=== PATIENT | female | born 1985 | race African-American/Black ===

== ENCOUNTER 2016-10-17 00:14 | Inpatient (IN) | payer MEDICAID ==
[~2016-10-17 00:14] MED LIST: ARIP10TA14 PO
[2016-10-17 01:20] VITALS: BP 119/64
[2016-10-17] MEDS ORDERED: ZOLPIDEM TARTRATE 10 MG TABLET PO PRN (01:30)
[2016-10-17 03:55] VITALS: BP 128/88
[2016-10-17 06:27] LABS: GLUCOSE,POINT OF CARE 233 MG/DL (70-110)
[2016-10-17] MEDS: QUEtiapine FUMARATE 100 MG TABLET PO PRN ×2 (08:06→16:54)
[2016-10-17] MEDS: LORazepam 1 MG TABLET PO PRN ×2 (08:07→16:54)
[2016-10-17 08:22] VITALS: BP 109/82
[2016-10-17] MEDS ORDERED: LORazepam 2 MG/ML VIAL IM ONE (08:45)
[2016-10-17] MEDS ORDERED: HALOPERIDOL LACTATE 5 MG/ML VIAL IM ONE (08:45)
[2016-10-17] MEDS ORDERED: DiphenhydrAMINE HCL 50 MG/ML VIAL IM ONE (08:45)
[2016-10-17 10:38] LABS: GLUCOSE,POINT OF CARE 164 MG/DL (70-110)
[2016-10-17 16:07] VITALS: BP 124/72
[2016-10-17] MEDS: OLANZapine 5 MG RAPDIS TABLET PO SCH (16:55)
[2016-10-17] MEDS: LevETIRAcetam 250 MG TABLET PO SCH (17:00)
[2016-10-17 17:47] LABS: GLUCOSE,POINT OF CARE 239 MG/DL (70-110)
[2016-10-17] MEDS ORDERED: ACETAMINOPHEN 325 MG TABLET PO PRN (19:45)
[2016-10-17] MEDS ORDERED: IBUPROFEN 400 MG TABLET PO PRN (19:45)
[2016-10-18 07:12] VITALS: BP 120/72
[2016-10-18 07:22] LABS: GLUCOSE,POINT OF CARE 164 MG/DL (70-110)
[2016-10-18 08:21] LABS: BASOPHILS # (AUTO) 0.08 K/uL (0.00-0.20); BASOPHILS % (AUTO) 0.9 % (0.0-2.0); EOSINOPHILS # (AUTO) 1.17 K/uL (0.00-0.70); HEMATOCRIT 46.2 % (36-46); HEMOGLOBIN 14.6 g/dL (12.0-16.0); LYMPHOCYTES # (AUTO) 4.3 K/uL (1.0-4.8); LYMPHOCYTES % (AUTO) 45.2 % (22.0-44.0); MEAN CORPUSCULAR HEMOGLOBIN 25.3 pg (26.0-34.0); MEAN CORPUSCULAR HGB CONC 31.6 G/dL (31.0-37.0); MEAN CORPUSCULAR VOLUME 80 fL (80-100); MONOCYTES # (AUTO) 0.5 K/uL (0.1-1.0); MONOCYTES % (AUTO) 5.7 % (2.0-9.0); NEUTROPHILS # (AUTO) 3.4 K/uL (1.8-7.7); NEUTROPHILS % (AUTO) 35.9 % (40.0-70.0); PLATELET COUNT (AUTO) 316 K/uL (150-450); RED BLOOD CELL COUNT(AUTO) 5.77 MIL/uL (4.00-5.20); RED CELL DISTRIBUTION WIDTH 15.6 % (11.5-14.5); WHITE BLOOD COUNT (AUTO) 9.4 K/uL (4.5-11.0)
[2016-10-18 08:38] VITALS: BP 138/73
[2016-10-18 08:59] LABS: ALANINE AMINOTRANSFERASE 20 U/L (12-78); ALBUMIN 3.7 g/dL (3.4-5.0); ANION GAP 5 mmol/L (8-16); ASPARTATE AMINOTRANSFERASE 8 U/L (15-37); BILIRUBIN,TOTAL 0.2 mg/dL (0.1-1.0); CALCIUM, TOTAL 9.5 mg/dL (8.8-10.5); CARBON DIOXIDE 32 mmol/L (22-29); CHLORIDE 102 mmol/L (98-107); CHOL/HDL RATIO 3.5 (3.9-5.7); CREATININE 0.76 mg/dL (0.60-1.30); GLOMERULAR FILTR. RATE CALC > 60 mL/min (>60); POTASSIUM 5.4 mmol/L (3.5-5.1); SODIUM SERUM 139 mmol/L (136-145); TOTAL PROTEIN, SERUM 7.1 g/dL (6.4-8.2); UREA NITROGEN, BLOOD 25 mg/dL (7-18)
[2016-10-18] MEDS: OLANZapine 5 MG RAPDIS TABLET PO SCH ×2 (08:59→16:21)
[2016-10-18] MEDS: LevETIRAcetam 250 MG TABLET PO SCH ×2 (08:59→16:21)
[2016-10-18 09:01] LABS: HEMOGLOBIN A1C 8.9 % (4.5-6.2)
[2016-10-18] MEDS: LORazepam 1 MG TABLET PO PRN ×2 (09:02→16:22)
[2016-10-18] MEDS ORDERED: SODIUM POLYSTYRENE SULFONATE 15 GM/60 ML SUSPENSION BOTTLE PO ONE (10:15)
[2016-10-18] MEDS ORDERED: GLUCAGON,HUMAN RECOMBINANT 1 MG VIAL IM PRN (10:30)
[2016-10-18] MEDS: INSULIN ASPART 100 UNITS/ML SQ PRN ×2 (11:44→20:18)
[2016-10-18 12:27] LABS: GLUCOSE,POINT OF CARE 250 MG/DL (70-110)
[2016-10-18 16:01] VITALS: BP 125/77
[2016-10-18 20:12] LABS: GLUCOSE,POINT OF CARE 300 MG/DL (70-110)
[2016-10-18] MEDS: INSULIN DETEMIR 100 UNITS/ML SQ SCH (20:17)
[2016-10-18] MEDS ORDERED: INSULIN DETEMIR 100 UNITS/ML SQ SCH (21:00)
[2016-10-19 08:00] VITALS: BP 137/60
[2016-10-19] MEDS: OLANZapine 5 MG RAPDIS TABLET PO SCH ×2 (08:09→16:24)
[2016-10-19] MEDS: LevETIRAcetam 250 MG TABLET PO SCH ×2 (08:11→16:24)
[2016-10-19] MEDS: QUEtiapine FUMARATE 100 MG TABLET PO PRN ×2 (08:11→16:29)
[2016-10-19] MEDS: LORazepam 1 MG TABLET PO PRN ×2 (08:11→16:24)
[2016-10-19 12:08] LABS: GLUCOSE,POINT OF CARE 234 MG/DL (70-110)
[2016-10-19] MEDS ORDERED: LORazepam 2 MG/ML VIAL IM ONE (13:30)
[2016-10-19] MEDS ORDERED: DiphenhydrAMINE HCL 50 MG/ML VIAL IM ONE (13:30)
[2016-10-19] MEDS ORDERED: HALOPERIDOL LACTATE 5 MG/ML VIAL IM ONE (13:30)
[2016-10-19 16:00] VITALS: BP 122/74
[2016-10-19] MEDS: INSULIN DETEMIR 100 UNITS/ML SQ SCH (21:00)
[2016-10-20 06:01] VITALS: BP 137/60
[2016-10-20 06:37] LABS: GLUCOSE,POINT OF CARE 145 MG/DL (70-110)
[2016-10-20] MEDS: QUEtiapine FUMARATE 100 MG TABLET PO PRN ×2 (09:19→16:04)
[2016-10-20] MEDS: LORazepam 1 MG TABLET PO PRN ×2 (09:19→16:04)
[2016-10-20] MEDS: OLANZapine 5 MG RAPDIS TABLET PO SCH ×2 (09:19→16:04)
[2016-10-20] MEDS: LevETIRAcetam 250 MG TABLET PO SCH ×2 (09:19→16:03)
[2016-10-20 16:00] VITALS: BP 123/73
[2016-10-20 16:52] LABS: GLUCOSE,POINT OF CARE 285 MG/DL (70-110)
[2016-10-20] MEDS: INSULIN DETEMIR 100 UNITS/ML SQ SCH (21:00)
[2016-10-21 06:32] LABS: GLUCOSE,POINT OF CARE 231 MG/DL (70-110)
[2016-10-21 06:51] VITALS: BP 135/86
[2016-10-21 08:10] LABS: ALANINE AMINOTRANSFERASE 17 U/L (12-78); ALBUMIN 3.2 g/dL (3.4-5.0); ANION GAP 9 mmol/L (8-16); ASPARTATE AMINOTRANSFERASE 6 U/L (15-37); BILIRUBIN,TOTAL 0.2 mg/dL (0.1-1.0); CARBON DIOXIDE 25 mmol/L (22-29); CHLORIDE 103 mmol/L (98-107); CREATININE 0.61 mg/dL (0.60-1.30); GLOMERULAR FILTR. RATE CALC > 60 mL/min (>60); POTASSIUM 4.4 mmol/L (3.5-5.1); SODIUM SERUM 137 mmol/L (136-145); TOTAL PROTEIN, SERUM 6.8 g/dL (6.4-8.2); UREA NITROGEN, BLOOD 20 mg/dL (7-18)
[2016-10-21 08:12] VITALS: BP 141/82
[2016-10-21] MEDS: LevETIRAcetam 250 MG TABLET PO SCH ×2 (09:05→17:17)
[2016-10-21] MEDS: QUEtiapine FUMARATE 100 MG TABLET PO PRN (09:05)
[2016-10-21] MEDS: OLANZapine 5 MG RAPDIS TABLET PO SCH (09:05)
[2016-10-21] MEDS: LORazepam 1 MG TABLET PO PRN (09:05)
[2016-10-21 12:27] LABS: GLUCOSE,POINT OF CARE 208 MG/DL (70-110)
[2016-10-21] MEDS ORDERED: LORazepam 2 MG/ML VIAL ONE (13:26)
[2016-10-21] MEDS ORDERED: DiphenhydrAMINE HCL 50 MG/ML VIAL ONE (13:27)
[2016-10-21] MEDS ORDERED: HALOPERIDOL LACTATE 5 MG/ML VIAL ONE (13:27)
[2016-10-21] MEDS: FLUoxetine HCL 20 MG CAPSULE PO SCH (13:30)
[2016-10-21] MEDS ORDERED: DiphenhydrAMINE HCL 50 MG/ML VIAL IM ONE (14:00)
[2016-10-21] MEDS ORDERED: LORazepam 2 MG/ML VIAL IM ONE (14:00)
[2016-10-21] MEDS ORDERED: HALOPERIDOL LACTATE 5 MG/ML VIAL IM ONE (14:00)
[2016-10-21 16:00] VITALS: BP 158/62
[2016-10-21 16:57] LABS: GLUCOSE COMMENT 1 Received Meds; GLUCOSE,POINT OF CARE 313 MG/DL (70-110)
[2016-10-21] MEDS: OLANZapine 10 MG RAPDIS TABLET PO SCH (17:17)
[2016-10-21] MEDS: INSULIN ASPART 100 UNITS/ML SQ PRN ×2 (17:24→21:04)
[2016-10-21 21:02] LABS: GLUCOSE COMMENT 1 Received Meds; GLUCOSE,POINT OF CARE 285 MG/DL (70-110)
[2016-10-21] MEDS: INSULIN DETEMIR 100 UNITS/ML SQ SCH (21:04)
[2016-10-22 06:47] LABS: GLUCOSE,POINT OF CARE 198 MG/DL (70-110)
[2016-10-22] MEDS: OLANZapine 10 MG RAPDIS TABLET PO SCH ×2 (08:05→16:10)
[2016-10-22] MEDS: FLUoxetine HCL 20 MG CAPSULE PO SCH (08:05)
[2016-10-22] MEDS: LevETIRAcetam 250 MG TABLET PO SCH ×2 (08:05→16:10)
[2016-10-22] MEDS: LORazepam 1 MG TABLET PO PRN (08:13)
[2016-10-22 08:39] VITALS: BP 139/94
[2016-10-22] MEDS ORDERED: LEVE250T55 PO (09:19)
[2016-10-22] MEDS ORDERED: OLAN10TA6 PO (09:19)
[2016-10-22] MEDS ORDERED: INSU100V12 SQ (09:19)
[2016-10-22] MEDS ORDERED: FLUO-191 PO (09:19)
[2016-10-22] MEDS: INSULIN ASPART 100 UNITS/ML SQ PRN ×3 (11:47→20:30)
[2016-10-22 12:12] LABS: GLUCOSE,POINT OF CARE 253 MG/DL (70-110)
[2016-10-22 16:20] VITALS: BP 132/78
[2016-10-22 17:37] LABS: GLUCOSE,POINT OF CARE 362 MG/DL (70-110)
[2016-10-22] MEDS: INSULIN DETEMIR 100 UNITS/ML SQ SCH (20:31)
[2016-10-22 20:33] LABS: GLUCOSE,POINT OF CARE 208 MG/DL (70-110)
[2016-10-23 06:49] VITALS: BP 131/85
[2016-10-23] MEDS: INSULIN ASPART 100 UNITS/ML SQ PRN ×2 (06:52→11:32)
[2016-10-23 07:46] LABS: GLUCOSE,POINT OF CARE 176 MG/DL (70-110)
[2016-10-23] MEDS: LevETIRAcetam 250 MG TABLET PO SCH (08:01)
[2016-10-23] MEDS: QUEtiapine FUMARATE 100 MG TABLET PO PRN (08:01)
[2016-10-23] MEDS: LORazepam 1 MG TABLET PO PRN (08:01)
[2016-10-23] MEDS: OLANZapine 10 MG RAPDIS TABLET PO SCH (08:01)
[2016-10-23 08:16] VITALS: BP 129/90
[2016-10-23] MEDS ORDERED: FLUoxetine HCL 20 MG CAPSULE PO SCH (09:00)
[2016-10-23 11:42] LABS: GLUCOSE,POINT OF CARE 257 MG/DL (70-110)
== END 2016-10-23 13:52 | disposition home or self-care (01) | DRG 750 ==
LOC: B3A 01:36 → EDSTATUS 01:40
PROVIDERS: ADMIT Psychiatry & Neurology Psychiatry; ATTEND Psychiatry & Neurology Psychiatry
DX: F25.0 Schizoaffective disorder, bipolar type (principal); F15.20 Other stimulant dependence, uncomplicated; E11.65 Type 2 diabetes mellitus with hyperglycemia; E87.5 Hyperkalemia; Z91.14 Patient's other noncompliance with medication regimen; I10 Essential (primary) hypertension; Z59.0 Homelessness; E78.5 Hyperlipidemia, unspecified; F10.10 Alcohol abuse, uncomplicated
CPT/HCPCS: 82962; 83036; 84436; J1200; J1630; J2060

== ENCOUNTER 2017-07-09 16:08 | Inpatient (IN) | payer MEDICAID, OTHER ==
[~2017-07-09] VITALS: Ht 160 cm; Wt 76.2 kg
[~2017-07-09 16:08] MED LIST changes: -ARIP10TA14 PO; +FLUO-191 PO; +INSU100V12 SQ; +LEVE250T55 PO; +OLAN10TA6 PO
[2017-07-09 17:16] LABS: AMPHET/METH SCREEN,URINE POSITIVE (NEGATIVE); BARBITURATE SCREEN, URINE NEGATIVE (NEGATIVE); BENZODIAZEPINES SCREEN,URINE NEGATIVE (NEGATIVE); CANNABINOID SCREEN,URINE POSITIVE (NEGATIVE); COCAINE SCREEN,URINE NEGATIVE (NEGATIVE); METHADONE SCREEN, URINE NEGATIVE (NEGATIVE); OPIATE SCREEN,URINE NEGATIVE (NEGATIVE)
[2017-07-09 17:17] LABS: PHENCYCLIDINE SCREEN,URINE NEGATIVE (NEGATIVE)
[2017-07-09 18:32] LABS: EOSINOPHILS % (AUTO) 9.2 % (1.0-6.0); HEMATOCRIT 42.4 % (36-46); HEMOGLOBIN 13.9 g/dL (12.0-16.0); LYMPHOCYTES % (AUTO) 45.4 % (22.0-44.0); MEAN CORPUSCULAR HEMOGLOBIN 25.6 pg (26.0-34.0); MEAN CORPUSCULAR HGB CONC 32.9 G/dL (31.0-37.0); MEAN CORPUSCULAR VOLUME 78 fL (80-100); MONOCYTES # (AUTO) 0.6 K/uL (0.1-1.0); MONOCYTES % (AUTO) 7.3 % (2.0-9.0); NEUTROPHILS # (AUTO) 3.2 K/uL (1.8-7.7); NEUTROPHILS % (AUTO) 37.1 % (40.0-70.0); PLATELET COUNT (AUTO) 302 K/uL (150-450); RED BLOOD CELL COUNT(AUTO) 5.43 MIL/uL (4.00-5.20); RED CELL DISTRIBUTION WIDTH 13.4 % (11.5-14.5)
[2017-07-09 18:38] LABS: ANION GAP 7 mmol/L (8-16); CALCIUM, TOTAL 9.5 mg/dL (8.8-10.5); CARBON DIOXIDE 32 mmol/L (22-29); CHLORIDE 101 mmol/L (98-107); CREATININE 0.75 mg/dL (0.60-1.30); GLOMERULAR FILTR. RATE CALC > 60 mL/min (>60); GLUCOSE,RANDOM 351 mg/dL (70-110); POTASSIUM 4.7 mmol/L (3.5-5.1); SODIUM SERUM 140 mmol/L (136-145); UREA NITROGEN, BLOOD 20 mg/dL (7-18)
[2017-07-09 18:43] LABS: ALANINE AMINOTRANSFERASE 30 U/L (12-78); ALBUMIN 3.7 g/dL (3.4-5.0); ALKALINE PHOSPHATASE 132 U/L (46-116); ASPARTATE AMINOTRANSFERASE 21 U/L (15-37); BILIRUBIN,TOTAL 0.3 mg/dL (0.1-1.0); TOTAL PROTEIN, SERUM 7.6 g/dL (6.4-8.2)
[2017-07-09] MEDS ORDERED: INSULIN REGULAR, HUMAN 100 UNITS/ML SQ ONE (21:30)
[2017-07-09 22:57] LABS: GLUCOSE,POINT OF CARE 264 MG/DL (70-110)
[2017-07-10] MEDS ORDERED: ZOLPIDEM TARTRATE 10 MG TABLET PO PRN (01:15)
[2017-07-10 02:53] LABS: GLUCOMETER DEV NAME(LOC) BV3N5; GLUCOSE,POINT OF CARE 122 MG/DL (70-110)
[2017-07-10 03:06] VITALS: BP 149/76
[2017-07-10] MEDS ORDERED: GLUCAGON,HUMAN RECOMBINANT 1 MG VIAL IM PRN (06:30)
[2017-07-10 06:58] LABS: GLUCOMETER DEV NAME(LOC) BV3S 2; GLUCOSE,POINT OF CARE 257 MG/DL (70-110)
[2017-07-10] MEDS: INSULIN ASPART 100 UNITS/ML SQ PRN ×2 (06:58→17:37)
[2017-07-10] MEDS ORDERED: PNEUMOCOCCAL VACCINE POLYVALENT 0.5 ML VIAL [PPSV23] IM ONE (07:15)
[2017-07-10] MEDS: LORazepam 2 MG TABLET PO PRN ×2 (10:00→16:56)
[2017-07-10] MEDS: HALOPERIDOL 5 MG TABLET PO PRN ×2 (10:00→16:56)
[2017-07-10] MEDS: LevETIRAcetam 250 MG TABLET PO SCH ×2 (12:16→16:56)
[2017-07-10 12:23] LABS: GLUCOMETER DEV NAME(LOC) BV3S 2; GLUCOSE,POINT OF CARE 124 MG/DL (70-110)
[2017-07-10] MEDS ORDERED: IBUPROFEN 400 MG TABLET PO PRN (13:15)
[2017-07-10] MEDS ORDERED: ACETAMINOPHEN 325 MG TABLET PO PRN (13:15)
[2017-07-10 16:15] VITALS: BP 121/68
[2017-07-10 17:28] LABS: GLUCOMETER DEV NAME(LOC) BV3S 2; GLUCOSE,POINT OF CARE 239 MG/DL (70-110)
[2017-07-11] MEDS: INSULIN ASPART 100 UNITS/ML SQ PRN (06:47)
[2017-07-11] MEDS: LORazepam 2 MG TABLET PO PRN (08:37)
[2017-07-11] MEDS: LevETIRAcetam 250 MG TABLET PO SCH ×2 (08:37→16:59)
[2017-07-11] MEDS: HALOPERIDOL 5 MG TABLET PO PRN (08:37)
[2017-07-11] MEDS: OLANZapine 10 MG RAPDIS TABLET PO SCH ×2 (08:37→16:59)
[2017-07-11] MEDS: FLUoxetine HCL 20 MG CAPSULE PO SCH (08:37)
[2017-07-11 08:43] VITALS: BP 137/61
[2017-07-11 23:38] LABS: GLUCOMETER DEV NAME(LOC) BV3S 2; GLUCOSE,POINT OF CARE 192 MG/DL (70-110)
[2017-07-12 06:13] LABS: GLUCOMETER DEV NAME(LOC) BV3S 2; GLUCOSE,POINT OF CARE 128 MG/DL (70-110)
[2017-07-12 07:02] VITALS: BP 110/73
[2017-07-12 08:26] VITALS: BP 115/60
[2017-07-12 08:27] LABS: HEMOGLOBIN A1C 8.4 % (4.5-6.2)
[2017-07-12 08:42] LABS: THYROID STIMULATING HORMONE 2.15 uIU/mL (0.36-3.74)
[2017-07-12 08:53] LABS: CHOL/HDL RATIO 4.8 (3.9-5.7)
[2017-07-12] MEDS: LORazepam 2 MG TABLET PO PRN ×2 (10:52→16:27)
[2017-07-12] MEDS: FLUoxetine HCL 20 MG CAPSULE PO SCH (10:52)
[2017-07-12] MEDS: OLANZapine 10 MG RAPDIS TABLET PO SCH ×2 (10:52→16:26)
[2017-07-12] MEDS: LevETIRAcetam 250 MG TABLET PO SCH ×2 (10:52→16:27)
[2017-07-12] MEDS: INSULIN ASPART 100 UNITS/ML SQ PRN ×3 (11:20→21:12)
[2017-07-12 11:22] LABS: GLUCOMETER DEV NAME(LOC) BV3S 2; GLUCOSE,POINT OF CARE 249 MG/DL (70-110)
[2017-07-12 17:58] LABS: GLUCOMETER DEV NAME(LOC) BV3S 2; GLUCOSE,POINT OF CARE 286 MG/DL (70-110)
[2017-07-12 21:07] LABS: GLUCOMETER DEV NAME(LOC) BV3S 2; GLUCOSE,POINT OF CARE 234 MG/DL (70-110)
[2017-07-13] MEDS: LevETIRAcetam 250 MG TABLET PO SCH ×2 (08:32→16:45)
[2017-07-13] MEDS: FLUoxetine HCL 20 MG CAPSULE PO SCH (08:32)
[2017-07-13] MEDS: LORazepam 2 MG TABLET PO PRN (08:32)
[2017-07-13] MEDS: OLANZapine 10 MG RAPDIS TABLET PO SCH ×2 (09:11→16:45)
[2017-07-13] MEDS: INSULIN ASPART 100 UNITS/ML SQ PRN (11:28)
[2017-07-13 14:42] LABS: GLUCOMETER DEV NAME(LOC) BV3S 2; GLUCOSE,POINT OF CARE 367 MG/DL (70-110)
[2017-07-13 16:19] VITALS: BP 116/77
[2017-07-13 16:53] LABS: GLUCOMETER DEV NAME(LOC) BV3S 2; GLUCOSE,POINT OF CARE 135 MG/DL (70-110)
[2017-07-14 06:33] LABS: GLUCOMETER DEV NAME(LOC) BV3S 2; GLUCOSE,POINT OF CARE 190 MG/DL (70-110)
[2017-07-14] MEDS: INSULIN ASPART 100 UNITS/ML SQ PRN ×3 (06:58→21:01)
[2017-07-14 08:29] VITALS: BP 138/86
[2017-07-14] MEDS: OLANZapine 10 MG RAPDIS TABLET PO SCH ×2 (08:38→16:20)
[2017-07-14] MEDS: FLUoxetine HCL 20 MG CAPSULE PO SCH (08:38)
[2017-07-14] MEDS: LevETIRAcetam 250 MG TABLET PO SCH ×2 (08:38→16:20)
[2017-07-14 10:53] LABS: GLUCOMETER DEV NAME(LOC) BV3S 2; GLUCOSE,POINT OF CARE 176 MG/DL (70-110)
[2017-07-14] MEDS: LORazepam 2 MG TABLET PO PRN (16:05)
[2017-07-14] MEDS ORDERED: INSULIN ASPART 100 UNITS/ML SQ ONE (16:15)
[2017-07-14 16:22] VITALS: BP 128/66
[2017-07-14 16:27] LABS: GLUCOMETER DEV NAME(LOC) BV3S 2; GLUCOSE,POINT OF CARE 511 MG/DL (70-110)
[2017-07-14] MEDS: INSULIN DETEMIR 100 UNITS/ML SQ SCH (17:41)
[2017-07-14 21:58] LABS: GLUCOMETER DEV NAME(LOC) BV3S 2; GLUCOSE,POINT OF CARE 235 MG/DL (70-110)
[2017-07-15 06:23] LABS: GLUCOMETER DEV NAME(LOC) BV3S 2; GLUCOSE,POINT OF CARE 192 MG/DL (70-110)
[2017-07-15] MEDS: INSULIN ASPART 100 UNITS/ML SQ PRN ×2 (06:59→11:42)
[2017-07-15 08:46] VITALS: BP 121/81
[2017-07-15] MEDS: LORazepam 2 MG TABLET PO PRN (08:47)
[2017-07-15] MEDS: OLANZapine 10 MG RAPDIS TABLET PO SCH (08:47)
[2017-07-15] MEDS: FLUoxetine HCL 20 MG CAPSULE PO SCH (08:47)
[2017-07-15] MEDS: LevETIRAcetam 250 MG TABLET PO SCH (08:47)
[2017-07-15] MEDS: INSULIN DETEMIR 100 UNITS/ML SQ SCH (09:08)
[2017-07-15 12:43] LABS: GLUCOMETER DEV NAME(LOC) BV3S 2; GLUCOSE,POINT OF CARE 340 MG/DL (70-110)
[2017-07-15] MEDS ORDERED: OLAN10TA6 PO (12:49)
[2017-07-15] MEDS ORDERED: FLUO-191 PO (12:49)
[2017-07-15] MEDS ORDERED: INSU100V12 SQ (12:49)
[2017-07-15] MEDS ORDERED: LEVE250T55 PO (12:49)
== END 2017-07-15 13:20 | disposition home or self-care (01) | DRG 750 ==
LOC: EMS 16:09 → B3A 07-10 01:17
PROVIDERS: ADMIT Psychiatry & Neurology Psychiatry; ATTEND Psychiatry & Neurology Psychiatry
PROC: 3E0234Z Introduction of Serum, Toxoid and Vaccine into Muscle, Percutaneous Approach (ICD-10-PCS; principal; 2017-07-10)
DX: F25.0 Schizoaffective disorder, bipolar type (principal); E11.42 Type 2 diabetes mellitus with diabetic polyneuropathy; R45.851 Suicidal ideations; E11.65 Type 2 diabetes mellitus with hyperglycemia; I10 Essential (primary) hypertension; E78.5 Hyperlipidemia, unspecified; F12.90 Cannabis use, unspecified, uncomplicated; F17.200 Nicotine dependence, unspecified, uncomplicated; Z91.5 Personal history of self-harm; G40.909 Epilepsy, unspecified, not intractable, without status epilepticus; F41.9 Anxiety disorder, unspecified; F15.90 Other stimulant use, unspecified, uncomplicated; F17.210 Nicotine dependence, cigarettes, uncomplicated; F29 Unspecified psychosis not due to a substance or known physiological condition; Z79.4 Long term (current) use of insulin; Z91.19 Patient's noncompliance with other medical treatment and regimen; Z59.0 Homelessness; Z79.899 Other long term (current) drug therapy; Z23 Encounter for immunization
CPT/HCPCS: 82962; 83036; 84443; 96372; 99285; G0480; J1815

== ENCOUNTER 2018-02-06 20:34 | Emergency (ER) | payer SELFPAY ==
[~2018-02-06] VITALS: Ht 157.5 cm; Wt 80.5 kg
[2018-02-06 20:39] VITALS: BP 136/104
[2018-02-06] MEDS ORDERED: ARIP10TA8 PO (20:45)
[2018-02-06] MEDS ORDERED: HYDR50CA10 PO (20:45)
[2018-02-06] MEDS ORDERED: PRAV10TA39 PO (20:45)
[2018-02-06] MEDS ORDERED: LISI-661 PO (20:45)
[2018-02-06] MEDS ORDERED: METF-960 PO (20:45)
[2018-02-06] MEDS ORDERED: INSLAN SQ (20:45)
[2018-02-06 20:49] LABS: GLUCOSE,POINT OF CARE 167 MG/DL (70-110)
== END 2018-02-06 22:25 | disposition left against medical advice (07) ==
LOC: EMS 20:35
DX: T74.21XA Adult sexual abuse, confirmed, initial encounter (principal); Z53.21 Procedure and treatment not carried out due to patient leaving prior to being seen by health care provider

== ENCOUNTER 2019-10-12 19:49 | Emergency (ER) | payer OTHER ==
[~2019-10-12] VITALS: Ht 157.5 cm; Wt 72.7 kg
[~2019-10-12 19:49] MED LIST changes: +ARIP10TA8 PO; -FLUO-191 PO; +HYDR50CA9 PO; +INSLAN SQ; -INSU100V12 SQ; +LISI-661 PO; +METF-960 PO; -OLAN10TA6 PO; +PRAV10TA39 PO
[2019-10-12 20:22] LABS: EOSINOPHILS % (AUTO) 3.6 % (1.0-6.0); HEMATOCRIT 43.5 % (36-46); LYMPHOCYTES # (AUTO) 2.8 K/uL (1.0-4.8); LYMPHOCYTES % (AUTO) 39.5 % (22.0-44.0); MEAN CORPUSCULAR HEMOGLOBIN 24.9 pg (26.0-34.0); MEAN CORPUSCULAR HGB CONC 32.1 G/dL (31.0-37.0); MEAN CORPUSCULAR VOLUME 78 fL (80-100); MONOCYTES # (AUTO) 0.5 K/uL (0.1-1.0); MONOCYTES % (AUTO) 6.5 % (2.0-9.0); NEUTROPHILS # (AUTO) 3.5 K/uL (1.8-7.7); NEUTROPHILS % (AUTO) 49.4 % (40.0-70.0); PLATELET COUNT (AUTO) 283 K/uL (150-450); RED CELL DISTRIBUTION WIDTH 14.6 % (11.5-14.5)
[2019-10-12 20:35] LABS: GLUCOSE,POINT OF CARE 316 MG/DL (70-110)
[2019-10-12 20:37] LABS: ANION GAP 9 mmol/L (8-16); CALCIUM, TOTAL 9.3 mg/dL (8.8-10.5); CARBON DIOXIDE 31 mmol/L (22-29); CHLORIDE 102 mmol/L (98-107); CREATININE 0.64 mg/dL (0.60-1.30); GLOMERULAR FILTR. RATE CALC > 60 mL/min (>60); GLUCOSE,RANDOM 311 mg/dL (70-110); POTASSIUM 4.8 mmol/L (3.5-5.1); SODIUM SERUM 142 mmol/L (136-145); UREA NITROGEN, BLOOD 18 mg/dL (7-18)
[2019-10-12 20:43] LABS: ALANINE AMINOTRANSFERASE 23 U/L (12-78); ALBUMIN 3.1 g/dL (3.4-5.0); ALKALINE PHOSPHATASE 110 U/L (46-116); ASPARTATE AMINOTRANSFERASE 11 U/L (15-37); BILIRUBIN,TOTAL 0.2 mg/dL (0.1-1.0)
[2019-10-12 20:53] LABS: AMPHET/METH SCREEN,URINE NEGATIVE (NEGATIVE); BARBITURATE SCREEN, URINE NEGATIVE (NEGATIVE); BENZODIAZEPINES SCREEN,URINE NEGATIVE (NEGATIVE); CANNABINOID SCREEN,URINE POSITIVE (NEGATIVE); COCAINE SCREEN,URINE NEGATIVE (NEGATIVE); METHADONE SCREEN, URINE NEGATIVE (NEGATIVE); OPIATE SCREEN,URINE NEGATIVE (NEGATIVE)
[2019-10-12 20:57] LABS: PHENCYCLIDINE SCREEN,URINE NEGATIVE (NEGATIVE)
[2019-10-12 22:55] VITALS: BP 121/76
[2019-10-13] MEDS ORDERED: LORazepam 1 MG TABLET PO ONE (02:15)
== END 2019-10-13 03:00 | disposition home or self-care (01) ==
LOC: EMS 19:50
DX: F32.9 Major depressive disorder, single episode, unspecified (principal); F20.9 Schizophrenia, unspecified; F41.9 Anxiety disorder, unspecified; E11.9 Type 2 diabetes mellitus without complications; I10 Essential (primary) hypertension; F17.210 Nicotine dependence, cigarettes, uncomplicated; Z79.84 Long term (current) use of oral hypoglycemic drugs; Z79.899 Other long term (current) drug therapy
CPT/HCPCS: 36415; 80053; 80307; 82962; 84703; 85025; 99284; G0480

== ENCOUNTER 2020-06-19 16:19 | Inpatient (IN) | payer MEDICAID, OTHER ==
[~2020-06-19] VITALS: Ht 157.5 cm; Wt 87.2 kg
[~2020-06-19 16:19] MED LIST changes: -LISI-661 PO; +LISI-893 PO
[2020-06-19 17:57] LABS: COVID AG,FIA SOURCE NASAL SWAB
[2020-06-19] MEDS ORDERED: TUBERCULIN, PURIFIED PROTEIN DERIVATIVE 5 TU/0.1 ML SYRINGE ID ONE (18:00)
[2020-06-19] MEDS ORDERED: PROMETHAZINE HCL 25 MG TABLET PO PRN (18:00)
[2020-06-19] MEDS ORDERED: HydrOXYzine PAMOATE 50 MG CAPSULE PO PRN (18:00)
[2020-06-19] MEDS ORDERED: OLANZapine 5 MG RAPDIS TABLET PO PRN (18:00)
[2020-06-19] MEDS ORDERED: MAGNESIUM HYDROXIDE SUSPENSION 30 ML UDCUP PO PRN (18:00)
[2020-06-19] MEDS ORDERED: ACETAMINOPHEN 325 MG TABLET PO PRN (18:00)
[2020-06-19] MEDS ORDERED: LOPERAMIDE HCL 2 MG CAPSULE PO PRN (18:00)
[2020-06-19] MEDS ORDERED: GuaiFENesin/D-METHORPHAN [SUGAR-FREE] 200-20MG/10 ML SYRUP UDCUP PO PRN (18:00)
[2020-06-19] MEDS ORDERED: MAG HYDROX/AL HYDROX/SIMETH ES 30 ML SUSPENSION UDCUP PO PRN (18:00)
[2020-06-19] MEDS ORDERED: LORazepam 2 MG TABLET PO PRN (18:00)
[2020-06-19] MEDS ORDERED: ZOLPIDEM TARTRATE 10 MG TABLET PO PRN (18:00)
[2020-06-19] MEDS ORDERED: PNEUMOCOCCAL VACCINE POLYVALENT 0.5 ML VIAL [PPSV23] IM ONE (19:30)
[2020-06-19] MEDS ORDERED: INFLUENZA VIRUS VACCINE QVS 2020-21 (6MO+)/PF 60 MCG/0.5 ML SYRINGE IM ONE (19:30)
[2020-06-19] MEDS ORDERED: GLUCAGON,HUMAN RECOMBINANT 1 MG VIAL IM PRN (20:45)
[2020-06-19] MEDS: MELATONIN 5 MG TABLET PO SCH (20:47)
[2020-06-19] MEDS: THIAMINE 100 MG TABLET PO SCH (20:47)
[2020-06-19] MEDS ORDERED: OLANZapine 5 MG RAPDIS TABLET PO SCH (21:00)
[2020-06-19 21:31] VITALS: BP 114/83
[2020-06-19] MEDS: INSULIN GLARGINE,HUM.REC.ANLOG 100 UNITS/ML SQ SCH (22:43)
[2020-06-19] MEDS: INSULIN LISPRO 100 UNITS/ML SQ PRN (22:43)
[2020-06-20 01:29] VITALS: BP 110/77
[2020-06-20] MEDS: MetFORMIN HCL 500 MG TABLET PO SCH ×2 (06:15→16:51)
[2020-06-20 06:22] LABS: GLUCOMETER DEV NAME(LOC) BV3S.; GLUCOSE,POINT OF CARE 120 MG/DL (70-110)
[2020-06-20 08:16] LABS: HEMATOCRIT 41.4 % (36-46); HEMOGLOBIN 13.4 g/dL (12.0-16.0); MEAN CORPUSCULAR HEMOGLOBIN 25.2 pg (26.0-34.0); MEAN CORPUSCULAR HGB CONC 32.5 G/dL (31.0-37.0); MEAN CORPUSCULAR VOLUME 78 fL (80-100); PLATELET COUNT (AUTO) 297 K/uL (150-450); RED BLOOD CELL COUNT(AUTO) 5.33 MIL/uL (4.00-5.20); RED CELL DISTRIBUTION WIDTH 13.8 % (11.5-14.5)
[2020-06-20 08:29] LABS: HEMOGLOBIN A1C 9.2 % (3.8-5.6)
[2020-06-20 08:51] LABS: ALANINE AMINOTRANSFERASE 29 U/L (12-78); ALBUMIN 3.6 g/dL (3.4-5.0); ALKALINE PHOSPHATASE 103 U/L (46-116); ANION GAP 8 mmol/L (8-16); ASPARTATE AMINOTRANSFERASE 10 U/L (15-37); BILIRUBIN,TOTAL 0.2 mg/dL (0.1-1.0); CALCIUM, TOTAL 9.6 mg/dL (8.8-10.5); CARBON DIOXIDE 29 mmol/L (22-29); CHLORIDE 101 mmol/L (98-107); CHOL/HDL RATIO 3.8 (3.9-5.7); CHOLESTEROL 223 mg/dL (131-200); CREATININE 0.63 mg/dL (0.60-1.30); FREE T4 (FREE THYROXINE) 1.08 ng/dL (0.76-1.46); GLOMERULAR FILTR. RATE CALC > 60 mL/min (>60); GLUCOSE,RANDOM 189 mg/dL (70-110); HCG,QUANTITATIVE 1 mIU/mL (0-6); HDL CHOLESTEROL 58 mg/dL (40-60); LDL CHOL (CALC.) 140 mg/dL (0-130); POTASSIUM 4.4 mmol/L (3.5-5.1); SODIUM SERUM 138 mmol/L (136-145); TOTAL PROTEIN, SERUM 7.6 g/dL (6.4-8.2); TRIGLYCERIDES 126 mg/dL (15-150); UREA NITROGEN, BLOOD 20 mg/dL (7-18)
[2020-06-20] MEDS: NALTREXONE HCL 50 MG TABLET PO SCH (09:00)
[2020-06-20] MEDS: OMEGA-3/DHA/EPA/FISH OIL 1,000 MG CAPSULE PO SCH (09:00)
[2020-06-20] MEDS: FLUoxetine HCL 20 MG CAPSULE PO SCH (09:00)
[2020-06-20] MEDS: PRAVASTATIN SODIUM 10 MG TABLET PO SCH (09:00)
[2020-06-20] MEDS: FOLIC ACID 1 MG TABLET PO SCH (09:00)
[2020-06-20] MEDS: THIAMINE 100 MG TABLET PO SCH ×2 (09:00→16:51)
[2020-06-20] MEDS: LISINOPRIL 10 MG TABLET PO SCH (09:00)
[2020-06-20] MEDS: MULTIVITAMINS WITH MINERALS, THERAPEUTIC TABLET PO SCH (09:00)
[2020-06-20] MEDS: LevETIRAcetam 250 MG TABLET PO SCH ×2 (09:00→16:50)
[2020-06-20 10:06] LABS: BAND NEUTROPHILS % (MANUAL) 1 % (0-5); EOSINOPHILS % (MANUAL) 5 % (1-6); LYMPHOCYTES % (MANUAL) 44 % (22-44); SEGMENTED NEUTROPHILS % 50 % (40-70)
[2020-06-20 10:08] VITALS: BP 110/78
[2020-06-20] MEDS: MELATONIN 5 MG TABLET PO SCH (20:47)
[2020-06-20] MEDS ORDERED: GLUCAGON,HUMAN RECOMBINANT 1 MG VIAL IM PRN (21:00)
[2020-06-20] MEDS ORDERED: OLANZapine 10 MG RAPDIS TABLET PO SCH (21:00)
[2020-06-20] MEDS ORDERED: INSULIN LISPRO 100 UNITS/ML SQ PRN (21:00)
[2020-06-20 21:05] LABS: GLUCOMETER DEV NAME(LOC) BV3S.; GLUCOSE,POINT OF CARE 196 MG/DL (70-110)
[2020-06-20] MEDS: INSULIN LISPRO 100 UNITS/ML SQ PRN (21:43)
[2020-06-20] MEDS: INSULIN GLARGINE,HUM.REC.ANLOG 100 UNITS/ML SQ SCH (21:48)
[2020-06-21 01:18] VITALS: BP 104/72
[2020-06-21 06:22] LABS: GLUCOMETER DEV NAME(LOC) BV3S.; GLUCOSE,POINT OF CARE 116 MG/DL (70-110)
[2020-06-21] MEDS: MetFORMIN HCL 500 MG TABLET PO SCH (07:01)
[2020-06-21 07:06] LABS: RPR QUANT. (TITER) 1:16 (NonRea<1:1)
[2020-06-21 08:05] VITALS: BP 119/73
[2020-06-21] MEDS: MULTIVITAMINS WITH MINERALS, THERAPEUTIC TABLET PO SCH (08:18)
[2020-06-21] MEDS: PRAVASTATIN SODIUM 10 MG TABLET PO SCH (08:18)
[2020-06-21] MEDS: THIAMINE 100 MG TABLET PO SCH (08:18)
[2020-06-21] MEDS: LISINOPRIL 10 MG TABLET PO SCH (08:18)
[2020-06-21] MEDS: OMEGA-3/DHA/EPA/FISH OIL 1,000 MG CAPSULE PO SCH (08:18)
[2020-06-21] MEDS: FLUoxetine HCL 20 MG CAPSULE PO SCH (08:18)
[2020-06-21] MEDS: NALTREXONE HCL 50 MG TABLET PO SCH (08:18)
[2020-06-21] MEDS: FOLIC ACID 1 MG TABLET PO SCH (08:56)
[2020-06-21] MEDS ORDERED: LevETIRAcetam 500 MG TABLET PO SCH (09:00)
[2020-06-21] MEDS ORDERED: PredniSONE 20 MG TABLET PO SCH (09:15)
[2020-06-21] MEDS ORDERED: PENICILLIN G BENZATHINE LA 2,400,000 UNITS/4 ML SYRINGE IM ONE (09:15)
[2020-06-21] MEDS ORDERED: OMEG-135 PO ×3 (10:30→10:59)
[2020-06-21] MEDS ORDERED: FLUO-191 PO ×2 (10:31→10:59)
[2020-06-21] MEDS ORDERED: OLAN10TA6 PO (10:33)
[2020-06-21] MEDS ORDERED: LEVE500T53 PO (10:59)
[2020-06-21] MEDS ORDERED: NALT50TA PO (10:59)
[2020-06-21] MEDS ORDERED: OLAN10TA22 PO (10:59)
[2020-06-21] MEDS: INSULIN LISPRO 100 UNITS/ML SQ PRN (11:57)
[2020-06-21 12:59] LABS: GLUCOMETER DEV NAME(LOC) BV3S.; GLUCOSE,POINT OF CARE 227 MG/DL (70-110)
== END 2020-06-21 20:12 | DRG 750 ==
LOC: B3A 19:03
PROVIDERS: ADMIT Psychiatry & Neurology Psychiatry; ATTEND Psychiatry & Neurology Psychiatry
DX: F25.9 Schizoaffective disorder, unspecified (principal); R45.851 Suicidal ideations; E11.9 Type 2 diabetes mellitus without complications; E66.9 Obesity, unspecified; Z68.35 Body mass index [BMI] 35.0-35.9, adult; E78.5 Hyperlipidemia, unspecified; I10 Essential (primary) hypertension; G40.409 Other generalized epilepsy and epileptic syndromes, not intractable, without status epilepticus; F17.210 Nicotine dependence, cigarettes, uncomplicated; F12.90 Cannabis use, unspecified, uncomplicated; Z59.0 Homelessness; A53.0 Latent syphilis, unspecified as early or late; F19.20 Other psychoactive substance dependence, uncomplicated; F43.10 Post-traumatic stress disorder, unspecified; Z91.5 Personal history of self-harm; Z20.822 Contact with and (suspected) exposure to COVID-19
CPT/HCPCS: 83036; 84439; 84443; 86592; 86593; 86780; 87426; A9575; J0561; J1815

== ENCOUNTER 2021-12-06 14:14 | Emergency (ER) | payer MEDICAID, OTHER ==
[~2021-12-06] VITALS: Ht 157.5 cm; Wt 84.3 kg
[~2021-12-06 14:14] MED LIST changes: -ARIP10TA8 PO; +FLUO-177 PO; -HYDR50CA9 PO; -LEVE250T55 PO; +LEVE500T20 PO; +METF-1211 PO; -METF-960 PO; +NALT50TA PO; +OLAN10TA22 PO; +OMEG-108 PO
[2021-12-06] MEDS ORDERED: NEED-463 SQ (15:22)
[2021-12-06] MEDS ORDERED: METF-1211 PO (15:25)
[2021-12-06 15:49] VITALS: BP 138/81
== END 2021-12-06 16:24 | disposition home or self-care (01) ==
LOC: EMS 14:16
DX: E11.65 Type 2 diabetes mellitus with hyperglycemia (principal); F41.9 Anxiety disorder, unspecified; F32.A Depression, unspecified; E78.00 Pure hypercholesterolemia, unspecified; I10 Essential (primary) hypertension; F20.9 Schizophrenia, unspecified; F17.210 Nicotine dependence, cigarettes, uncomplicated
CPT/HCPCS: 99281; Z7502

== ENCOUNTER 2023-05-30 11:51 | Emergency (ER) | payer OTHER ==
[~2023-05-30] VITALS: Ht 157.5 cm; Wt 79.5 kg
[~2023-05-30 11:51] MED LIST changes: -FLUO-177 PO; -NALT50TA PO; +NEED-463 SQ; -OLAN10TA22 PO; -OMEG-108 PO; +OMEG-135 PO
[2023-05-30 12:11] VITALS: BP 135/77; PULSE 82; RESP 16; TEMP 98
[2023-05-30 12:59] LABS: BASOPHILS % (AUTO) 0.9 % (0.0-2.0); HEMATOCRIT 44.3 % (36-46); HEMOGLOBIN 14.6 g/dL (12.0-16.0); LYMPHOCYTES # (AUTO) 1.3 K/uL (1.0-4.8); MEAN CORPUSCULAR HEMOGLOBIN 26.1 pg (26.0-34.0); MEAN CORPUSCULAR HGB CONC 32.9 G/dL (31.0-37.0); MEAN CORPUSCULAR VOLUME 79 fL (80-100); MONOCYTES # (AUTO) 0.5 K/uL (0.1-1.0); MONOCYTES % (AUTO) 6.7 % (2.0-9.0); NEUTROPHILS # (AUTO) 5.3 K/uL (1.8-7.7); NEUTROPHILS % (AUTO) 70.4 % (40.0-70.0); PLATELET COUNT (AUTO) 257 K/uL (150-450); RED BLOOD CELL COUNT(AUTO) 5.57 MIL/uL (4.00-5.20); RED CELL DISTRIBUTION WIDTH 13.9 % (11.5-14.5); WHITE BLOOD COUNT (AUTO) 7.5 K/uL (4.5-11.0)
[2023-05-30 13:18] LABS: APPEARANCE,URINE CLEAR (CLEAR); BILIRUBIN,URINE NEGATIVE (NEGATIVE); COLOR,URINE LIGHT YELLOW (YELLOW); GLUCOSE, URINE (UA) >=1000 mg/dL (NEGATIVE); LEUKOCYTE ESTERASE ,URINE MODERATE (NEGATIVE); NITRATE,URINE NEGATIVE (NEGATIVE); OCCULT BLOOD,URINE NEGATIVE (NEGATIVE); PROTEIN,URINE NEGATIVE (NEGATIVE); SPECIFIC GRAVITIY, URINE 1.038 (1.003-1.030); UROBILINOGEN,URINE <=1.0 mg/dL (<=1.0)
[2023-05-30 13:20] LABS: ALCOHOL, BLOOD (SERUM) < 3 mg/dL (0-10)
[2023-05-30 13:23] LABS: ALCOHOL, URINE DRUG SCREEN NEGATIVE (NEGATIVE); AMPHET/METH SCREEN,URINE POSITIVE (NEGATIVE); BARBITURATE SCREEN, URINE NEGATIVE (NEGATIVE); BENZODIAZEPINES SCREEN,URINE NEGATIVE (NEGATIVE); CANNABINOID SCREEN,URINE POSITIVE (NEGATIVE); COCAINE SCREEN,URINE NEGATIVE (NEGATIVE); METHADONE SCREEN, URINE NEGATIVE (NEGATIVE); OPIATE SCREEN,URINE NEGATIVE (NEGATIVE); PHENCYCLIDINE SCREEN,URINE NEGATIVE (NEGATIVE)
[2023-05-30 13:27] LABS: ALANINE AMINOTRANSFERASE 21 U/L (12-78); ALBUMIN 3.3 g/dL (3.4-5.0); ALKALINE PHOSPHATASE 159 U/L (46-116); ANION GAP 9 mmol/L (8-16); ASPARTATE AMINOTRANSFERASE 12 U/L (15-37); BILIRUBIN,TOTAL 0.3 mg/dL (0.1-1.0); CALCIUM, TOTAL 9.4 mg/dL (8.8-10.5); CARBON DIOXIDE 26 mmol/L (22-29); CHLORIDE 96 mmol/L (98-107); CREATININE 0.65 mg/dL (0.60-1.30); GLOMERULAR FILTR. RATE CALC > 60 mL/min (>60); POTASSIUM 4.1 mmol/L (3.5-5.1); SODIUM SERUM 131 mmol/L (136-145); TOTAL PROTEIN, SERUM 7.8 g/dL (6.4-8.2); UREA NITROGEN, BLOOD 15 mg/dL (7-18)
[2023-05-30 13:28] LABS: GLUCOSE,RANDOM 482 mg/dL (70-110)
[2023-05-30 13:32] LABS: BACTERIA,URINE Few /HPF (None Seen); RBC,URINE None Seen /HPF (0-2); SQUAMOUS EPITHELIAL CELL,UR Few /LPF (None Seen)
[2023-05-30] MEDS ORDERED: ARIP20TA21 PO (14:00)
[2023-05-30] MEDS ORDERED: ARIP10642 IM (14:00)
[2023-05-30] MEDS ORDERED: PRAZ2 PO (14:00)
[2023-05-30] MEDS ORDERED: NALO4SPR NASAL (14:00)
[2023-05-30] MEDS ORDERED: SERT-439 PO (14:00)
[2023-05-30] MEDS ORDERED: TRAZ-257 PO (14:00)
[2023-05-30] MEDS ORDERED: AMLO5TAB66 PO (14:00)
[2023-05-30] MEDS ORDERED: SODIUM CHLORIDE 0.9% 2,000 ML IV ONE (14:00)
[2023-05-30] MEDS ORDERED: GABA-529 PO (14:00)
[2023-05-30] MEDS ORDERED: INSULIN REGULAR, HUMAN 100 UNITS/ML IVP ONE (14:00)
[2023-05-30] MEDS ORDERED: CEPH-558 PO (14:12)
== END 2023-05-30 14:10 | disposition left against medical advice (07) ==
LOC: EMS 12:03
DX: N39.0 Urinary tract infection, site not specified (principal); F25.9 Schizoaffective disorder, unspecified; F15.90 Other stimulant use, unspecified, uncomplicated; E11.65 Type 2 diabetes mellitus with hyperglycemia; F32.A Depression, unspecified; E78.00 Pure hypercholesterolemia, unspecified; I10 Essential (primary) hypertension; F41.9 Anxiety disorder, unspecified
CPT/HCPCS: 80053; 81001; 84703; 85025; 36415; 87086; 87186; 99283; 80307 ×2; G0480

== ENCOUNTER 2023-06-13 16:46 | Inpatient (IN) | payer MEDICAID, OTHER ==
[~2023-06-13] VITALS: Ht 154.9 cm; Wt 71.0 kg
[~2023-06-13 16:46] MED LIST changes: +AMLO5TAB66 PO; +ARIP10642 IM; +ARIP20TA21 PO; +CEPH-558 PO; +GABA-529 PO; +NALO4SPR NASAL; +PRAZ2 PO; +SERT-439 PO; +TRAZ-257 PO
[2023-06-13] MEDS ORDERED: LORazepam 2 MG TABLET PO PRN (17:15)
[2023-06-13] MEDS ORDERED: ZOLPIDEM TARTRATE 10 MG TABLET PO PRN (17:15)
[2023-06-13 22:09] LABS: BASOPHILS % (AUTO) 0.7 % (0.0-2.0); EOSINOPHILS % (AUTO) 11.3 % (1.0-6.0); HEMATOCRIT 41.1 % (36-46); LYMPHOCYTES # (AUTO) 3.8 K/uL (1.0-4.8); LYMPHOCYTES % (AUTO) 48.9 % (22.0-44.0); MEAN CORPUSCULAR HEMOGLOBIN 24.9 pg (26.0-34.0); MEAN CORPUSCULAR HGB CONC 31.7 G/dL (31.0-37.0); MEAN CORPUSCULAR VOLUME 79 fL (80-100); MONOCYTES # (AUTO) 0.5 K/uL (0.1-1.0); MONOCYTES % (AUTO) 6.6 % (2.0-9.0); NEUTROPHILS # (AUTO) 2.5 K/uL (1.8-7.7); NEUTROPHILS % (AUTO) 32.5 % (40.0-70.0); PLATELET COUNT (AUTO) 239 K/uL (150-450); RED BLOOD CELL COUNT(AUTO) 5.23 MIL/uL (4.00-5.20); RED CELL DISTRIBUTION WIDTH 13.7 % (11.5-14.5); WHITE BLOOD COUNT (AUTO) 7.8 K/uL (4.5-11.0)
[2023-06-13 22:17] LABS: ANION GAP 8 mmol/L (8-16); CALCIUM, TOTAL 9.3 mg/dL (8.8-10.5); CARBON DIOXIDE 29 mmol/L (22-29); CHLORIDE 99 mmol/L (98-107); CREATININE 0.54 mg/dL (0.60-1.30); GLOMERULAR FILTR. RATE CALC > 60 mL/min (>60); GLUCOSE,RANDOM 263 mg/dL (70-110); POTASSIUM 3.6 mmol/L (3.5-5.1); SODIUM SERUM 136 mmol/L (136-145); UREA NITROGEN, BLOOD 12 mg/dL (7-18)
[2023-06-13 22:24] LABS: ALANINE AMINOTRANSFERASE 20 U/L (12-78); ALKALINE PHOSPHATASE 141 U/L (46-116); ASPARTATE AMINOTRANSFERASE 11 U/L (15-37); BILIRUBIN,TOTAL 0.2 mg/dL (0.1-1.0); TOTAL PROTEIN, SERUM 6.6 g/dL (6.4-8.2)
[2023-06-13 22:52] LABS: COVID AG,FIA SOURCE NASAL SWAB
[2023-06-13 22:57] LABS: ALCOHOL, BLOOD (SERUM) < 3 mg/dL (0-10)
[2023-06-13 22:58] LABS: ACETONE,BLOOD NEGATIVE (NEGATIVE)
[2023-06-13 23:35] LABS: SARS-COV2 (COVID) ANTIGEN,FIA Positive (Negative)
[2023-06-14] MEDS ORDERED: INSULIN REGULAR, HUMAN 100 UNITS/ML SQ ONE (01:15)
[2023-06-14 02:56] VITALS: BP 112/86; PULSE 80; RESP 18; TEMP 98.8
[2023-06-14] MEDS ORDERED: INFLUENZA VIRUS VACCINE QVS 2023-24 (6MO+)/PF 60 MCG/0.5 ML SYRINGE IM. ONE (05:15)
[2023-06-14] MEDS ORDERED: PNEUMOCOCCAL VACCINE POLYVALENT 0.5 ML SYRINGE [PPSV23] IM. ONE (05:15)
[2023-06-14] MEDS ORDERED: DEXTROSE 50%-WATER 25 GM/50 ML SYRINGE IVP PRN (06:30)
[2023-06-14] MEDS ORDERED: ALBUTEROL SULFATE HFA 90 MCG/PUFF 8 GM INHALER IH PRN (08:00)
[2023-06-14] MEDS ORDERED: DOCUSATE SODIUM 100 MG CAPSULE PO PRN (08:00)
[2023-06-14] MEDS ORDERED: ACETAMINOPHEN 325 MG TABLET PO PRN (08:00)
[2023-06-14] MEDS ORDERED: IBUPROFEN 400 MG TABLET PO PRN (08:00)
[2023-06-14] MEDS ORDERED: CloNIDine HCL 0.1 MG TABLET PO PRN (08:00)
[2023-06-14] MEDS ORDERED: PETROLATUM,WHITE 28 GM JELLY TP PRN (08:00)
[2023-06-14] MEDS ORDERED: GuaiFENesin/D-METHORPHAN [SUGAR-FREE] 200-20MG/10 ML SYRUP UDCUP PO PRN (08:00)
[2023-06-14] MEDS ORDERED: NICOTINE 14 MG/24 HOUR PATCH TD PRN (08:00)
[2023-06-14] MEDS ORDERED: MAG HYDROX/ALUMINUM HYD/SIMETH ES 30 ML SUSPENSION UDCUP PO PRN (08:00)
[2023-06-14] MEDS ORDERED: MAGNESIUM HYDROXIDE SUSPENSION 30 ML UDCUP PO PRN (08:00)
[2023-06-14] MEDS ORDERED: ONDANSETRON HCL 4 MG TABLET PO PRN (08:00)
[2023-06-14] MEDS ORDERED: LOPERAMIDE HCL 2 MG CAPSULE PO PRN (08:00)
[2023-06-14 08:28] VITALS: BP 113/72; PULSE 89; RESP 18; TEMP 98.1
[2023-06-14] MEDS: OMEGA-3/DHA/EPA/FISH OIL 1,000 MG CAPSULE PO SCH (10:27)
[2023-06-14] MEDS: AmLODIPine BESYLATE 5 MG TABLET PO SCH (10:28)
[2023-06-14] MEDS: LISINOPRIL 10 MG TABLET PO SCH (10:28)
[2023-06-14] MEDS: PRAVASTATIN SODIUM 10 MG TABLET PO SCH (10:29)
[2023-06-14 12:31] LABS: GLUCOMETER DEV NAME(LOC) 3E.C; GLUCOSE,POINT OF CARE 341 MG/DL (70-110)
[2023-06-14] MEDS: ARIPiprazole 10 MG TABLET PO SCH (12:31)
[2023-06-14] MEDS: GABAPENTIN 100 MG CAPSULE PO SCH ×3 (12:31→17:36)
[2023-06-14] MEDS: SERTRALINE HCL 50 MG TABLET PO SCH (12:31)
[2023-06-14] MEDS: INSULIN LISPRO 100 UNITS/ML SQ PRN ×3 (12:34→21:07)
[2023-06-14 13:30] LABS: APPEARANCE,URINE CLEAR (CLEAR); BILIRUBIN,URINE NEGATIVE (NEGATIVE); COLOR,URINE COLORLESS (YELLOW); GLUCOSE, URINE (UA) >=1000 mg/dL (NEGATIVE); KETONES,URINE NEGATIVE (NEGATIVE); LEUKOCYTE ESTERASE ,URINE MODERATE (NEGATIVE); NITRATE,URINE NEGATIVE (NEGATIVE); OCCULT BLOOD,URINE NEGATIVE (NEGATIVE); PH,URINE 5.5 (5.0-8.0); PH,URINE DRUG SCREEN 5.5 (5.0-8.0); PROTEIN,URINE NEGATIVE (NEGATIVE); SPECIFIC GRAVITIY, URINE 1.023 (1.003-1.030); UROBILINOGEN,URINE <=1.0 mg/dL (<=1.0)
[2023-06-14 13:37] LABS: ALCOHOL, URINE DRUG SCREEN NEGATIVE (NEGATIVE); AMPHET/METH SCREEN,URINE NEGATIVE (NEGATIVE); BARBITURATE SCREEN, URINE NEGATIVE (NEGATIVE); BENZODIAZEPINES SCREEN,URINE NEGATIVE (NEGATIVE); CANNABINOID SCREEN,URINE POSITIVE (NEGATIVE); COCAINE SCREEN,URINE NEGATIVE (NEGATIVE); METHADONE SCREEN, URINE NEGATIVE (NEGATIVE); OPIATE SCREEN,URINE NEGATIVE (NEGATIVE); PHENCYCLIDINE SCREEN,URINE NEGATIVE (NEGATIVE)
[2023-06-14 14:05] LABS: BACTERIA,URINE Few /HPF (None Seen); RBC,URINE None Seen /HPF (0-2); SQUAMOUS EPITHELIAL CELL,UR Few /LPF (None Seen)
[2023-06-14] MEDS: MetFORMIN HCL 500 MG TABLET PO SCH ×2 (17:03→17:53)
[2023-06-14 17:37] LABS: GLUCOMETER DEV NAME(LOC) 3E.C; GLUCOSE,POINT OF CARE 240 MG/DL (70-110)
[2023-06-14 20:13] VITALS: BP 117/77; PULSE 90; RESP 19; TEMP 97.7
[2023-06-14] MEDS: TraZODone HCL 100 MG TABLET PO SCH (20:50)
[2023-06-14] MEDS: PRAZOSIN HCL 2 MG CAPSULE PO SCH (20:50)
[2023-06-14 20:51] LABS: GLUCOMETER DEV NAME(LOC) 3E.C; GLUCOSE,POINT OF CARE 353 MG/DL (70-110)
[2023-06-14] MEDS: INSULIN GLARGINE,HUM.REC.ANLOG 100 UNITS/ML SQ SCH (21:06)
[2023-06-15 06:31] LABS: GLUCOMETER DEV NAME(LOC) 3E.C; GLUCOSE,POINT OF CARE 290 MG/DL (70-110)
[2023-06-15] MEDS: INSULIN LISPRO 100 UNITS/ML SQ PRN ×3 (06:52→21:26)
[2023-06-15] MEDS: MetFORMIN HCL 500 MG TABLET PO SCH ×2 (06:52→16:28)
[2023-06-15] MEDS: OMEGA-3/DHA/EPA/FISH OIL 1,000 MG CAPSULE PO SCH (08:38)
[2023-06-15] MEDS: AmLODIPine BESYLATE 5 MG TABLET PO SCH (08:38)
[2023-06-15] MEDS: GABAPENTIN 100 MG CAPSULE PO SCH ×3 (08:38→16:27)
[2023-06-15] MEDS: LISINOPRIL 10 MG TABLET PO SCH (08:39)
[2023-06-15] MEDS: ARIPiprazole 10 MG TABLET PO SCH (08:39)
[2023-06-15] MEDS: SERTRALINE HCL 50 MG TABLET PO SCH (08:41)
[2023-06-15] MEDS: PRAVASTATIN SODIUM 10 MG TABLET PO SCH (08:56)
[2023-06-15 09:39] VITALS: BP 143/85; PULSE 100; RESP 17; TEMP 98
[2023-06-15 11:31] LABS: GLUCOMETER DEV NAME(LOC) 3E.C; GLUCOSE,POINT OF CARE 265 MG/DL (70-110)
[2023-06-15] MEDS: HALOPERIDOL 5 MG TABLET PO PRN (14:24)
[2023-06-15 17:26] LABS: GLUCOMETER DEV NAME(LOC) 3E.C; GLUCOSE,POINT OF CARE 328 MG/DL (70-110)
[2023-06-15 20:30] VITALS: BP 132/87; PULSE 92; RESP 48; TEMP 97.8
[2023-06-15 21:01] LABS: GLUCOMETER DEV NAME(LOC) 3E.C; GLUCOSE,POINT OF CARE 237 MG/DL (70-110)
[2023-06-15] MEDS: PRAZOSIN HCL 2 MG CAPSULE PO SCH (21:24)
[2023-06-15] MEDS: TraZODone HCL 100 MG TABLET PO SCH (21:24)
[2023-06-15] MEDS: INSULIN GLARGINE,HUM.REC.ANLOG 100 UNITS/ML SQ SCH (21:26)
[2023-06-16] MEDS: MetFORMIN HCL 500 MG TABLET PO SCH ×2 (06:41→17:02)
[2023-06-16] MEDS: INSULIN LISPRO 100 UNITS/ML SQ PRN ×4 (06:42→21:30)
[2023-06-16 06:56] LABS: GLUCOMETER DEV NAME(LOC) 3E.C; GLUCOSE,POINT OF CARE 264 MG/DL (70-110)
[2023-06-16 08:07] LABS: CHOL/HDL RATIO 4.3 (3.9-5.7)
[2023-06-16 08:15] VITALS: BP 114/82; PULSE 113; RESP 18; TEMP 97.3
[2023-06-16] MEDS: GABAPENTIN 100 MG CAPSULE PO SCH ×3 (08:20→17:02)
[2023-06-16] MEDS: AmLODIPine BESYLATE 5 MG TABLET PO SCH (08:20)
[2023-06-16] MEDS: OMEGA-3/DHA/EPA/FISH OIL 1,000 MG CAPSULE PO SCH (08:20)
[2023-06-16] MEDS: ARIPiprazole 10 MG TABLET PO SCH (08:21)
[2023-06-16] MEDS: LISINOPRIL 10 MG TABLET PO SCH (08:21)
[2023-06-16] MEDS: SERTRALINE HCL 50 MG TABLET PO SCH (08:21)
[2023-06-16] MEDS: PRAVASTATIN SODIUM 10 MG TABLET PO SCH (08:27)
[2023-06-16 11:36] LABS: GLUCOMETER DEV NAME(LOC) 3E.C; GLUCOSE,POINT OF CARE 296 MG/DL (70-110)
[2023-06-16 17:32] LABS: GLUCOMETER DEV NAME(LOC) 3E.C; GLUCOSE,POINT OF CARE 324 MG/DL (70-110)
[2023-06-16 17:40] LABS: COVID AG,FIA SOURCE NASAL SWAB
[2023-06-16 17:57] LABS: SARS-COV2 (COVID) ANTIGEN,FIA Negative (Negative)
[2023-06-16 20:11] VITALS: BP 124/77; PULSE 95; RESP 18; TEMP 97.7
[2023-06-16] MEDS: PRAZOSIN HCL 2 MG CAPSULE PO SCH (20:55)
[2023-06-16] MEDS: TraZODone HCL 100 MG TABLET PO SCH (20:55)
[2023-06-16 21:01] LABS: GLUCOMETER DEV NAME(LOC) 3E.C; GLUCOSE,POINT OF CARE 263 MG/DL (70-110)
[2023-06-16] MEDS: INSULIN GLARGINE,HUM.REC.ANLOG 100 UNITS/ML SQ SCH (21:29)
[2023-06-17 06:31] LABS: GLUCOMETER DEV NAME(LOC) 3E.C; GLUCOSE,POINT OF CARE 282 MG/DL (70-110)
[2023-06-17] MEDS: INSULIN LISPRO 100 UNITS/ML SQ PRN ×4 (06:37→21:16)
[2023-06-17] MEDS: HALOPERIDOL 5 MG TABLET PO PRN (06:43)
[2023-06-17] MEDS: MetFORMIN HCL 500 MG TABLET PO SCH ×2 (06:58→16:14)
[2023-06-17] MEDS: AmLODIPine BESYLATE 5 MG TABLET PO SCH (08:11)
[2023-06-17] MEDS: OMEGA-3/DHA/EPA/FISH OIL 1,000 MG CAPSULE PO SCH (08:11)
[2023-06-17] MEDS: SERTRALINE HCL 50 MG TABLET PO SCH (08:11)
[2023-06-17] MEDS: PRAVASTATIN SODIUM 10 MG TABLET PO SCH (08:11)
[2023-06-17] MEDS: ARIPiprazole 10 MG TABLET PO SCH (08:11)
[2023-06-17] MEDS: LISINOPRIL 10 MG TABLET PO SCH (08:11)
[2023-06-17 08:24] VITALS: BP 115/80; PULSE 89; RESP 17; TEMP 98.3
[2023-06-17 08:31] LABS: BASOPHILS % (AUTO) 0.9 % (0.0-2.0); EOSINOPHILS % (AUTO) 4.3 % (1.0-6.0); HEMATOCRIT 42.4 % (36-46); HEMOGLOBIN 13.4 g/dL (12.0-16.0); LYMPHOCYTES # (AUTO) 2.8 K/uL (1.0-4.8); LYMPHOCYTES % (AUTO) 38.4 % (22.0-44.0); MEAN CORPUSCULAR HEMOGLOBIN 24.9 pg (26.0-34.0); MEAN CORPUSCULAR HGB CONC 31.6 G/dL (31.0-37.0); MEAN CORPUSCULAR VOLUME 79 fL (80-100); MONOCYTES # (AUTO) 0.5 K/uL (0.1-1.0); MONOCYTES % (AUTO) 6.5 % (2.0-9.0); NEUTROPHILS # (AUTO) 3.6 K/uL (1.8-7.7); NEUTROPHILS % (AUTO) 49.9 % (40.0-70.0); PLATELET COUNT (AUTO) 270 K/uL (150-450); RED BLOOD CELL COUNT(AUTO) 5.39 MIL/uL (4.00-5.20); RED CELL DISTRIBUTION WIDTH 13.3 % (11.5-14.5); WHITE BLOOD COUNT (AUTO) 7.2 K/uL (4.5-11.0)
[2023-06-17] MEDS: GABAPENTIN 100 MG CAPSULE PO SCH ×3 (08:45→16:14)
[2023-06-17 11:41] LABS: GLUCOMETER DEV NAME(LOC) 3E.C; GLUCOSE,POINT OF CARE 362 MG/DL (70-110)
[2023-06-17 17:47] LABS: GLUCOMETER DEV NAME(LOC) 3E.C; GLUCOSE,POINT OF CARE 360 MG/DL (70-110)
[2023-06-17] MEDS: INSULIN GLARGINE,HUM.REC.ANLOG 100 UNITS/ML SQ SCH (21:16)
[2023-06-17] MEDS: TraZODone HCL 100 MG TABLET PO SCH (21:17)
[2023-06-17] MEDS: PRAZOSIN HCL 2 MG CAPSULE PO SCH (21:17)
[2023-06-17 21:21] LABS: GLUCOMETER DEV NAME(LOC) 3E.C; GLUCOSE,POINT OF CARE 168 MG/DL (70-110)
[2023-06-17 22:15] VITALS: BP 110/72; PULSE 85; RESP 18; TEMP 97.7
[2023-06-18] MEDS: INSULIN LISPRO 100 UNITS/ML SQ PRN ×2 (06:37→11:44)
[2023-06-18 06:46] LABS: GLUCOMETER DEV NAME(LOC) 3E.C; GLUCOSE,POINT OF CARE 219 MG/DL (70-110)
[2023-06-18] MEDS: MetFORMIN HCL 500 MG TABLET PO SCH (06:53)
[2023-06-18] MEDS: AmLODIPine BESYLATE 5 MG TABLET PO SCH (08:02)
[2023-06-18] MEDS: GABAPENTIN 100 MG CAPSULE PO SCH ×2 (08:02→12:12)
[2023-06-18] MEDS: OMEGA-3/DHA/EPA/FISH OIL 1,000 MG CAPSULE PO SCH (08:02)
[2023-06-18] MEDS: SERTRALINE HCL 50 MG TABLET PO SCH (08:02)
[2023-06-18] MEDS: PRAVASTATIN SODIUM 10 MG TABLET PO SCH (08:03)
[2023-06-18] MEDS: LISINOPRIL 10 MG TABLET PO SCH (08:03)
[2023-06-18] MEDS: ARIPiprazole 10 MG TABLET PO SCH (08:03)
[2023-06-18 10:48] VITALS: BP 117/72; PULSE 101; RESP 18; TEMP 97.7
[2023-06-18 11:46] LABS: GLUCOMETER DEV NAME(LOC) 3E.C; GLUCOSE,POINT OF CARE 372 MG/DL (70-110)
[2023-06-18] MEDS ORDERED: ARIP10TA38 PO (12:40)
[2023-06-18] MEDS ORDERED: PRAZ2 PO (12:40)
[2023-06-18] MEDS ORDERED: SERT-439 PO (12:40)
[2023-06-18] MEDS ORDERED: GABA-1216 PO (12:40)
[2023-06-18] MEDS ORDERED: TRAZ-257 PO (12:40)
[2023-06-18] MEDS ORDERED: PRAV10TA39 PO (13:45)
[2023-06-18] MEDS ORDERED: AMLO-257 PO (13:45)
[2023-06-18] MEDS ORDERED: INSLAN SQ (13:45)
[2023-06-18] MEDS ORDERED: METF-1211 PO (13:45)
[2023-06-18] MEDS ORDERED: LISI-893 PO (13:45)
== END 2023-06-18 12:20 | disposition home or self-care (01) | DRG 750 ==
LOC: EMS 17:03 → 3EI 06-14 01:00
PROVIDERS: ADMIT Psychiatry & Neurology Child & Adolescent Psychiatry; ATTEND Psychiatry & Neurology Child & Adolescent Psychiatry
DX: F25.0 Schizoaffective disorder, bipolar type (principal); U07.1 COVID-19; R45.851 Suicidal ideations; R56.9 Unspecified convulsions; E78.00 Pure hypercholesterolemia, unspecified; F41.9 Anxiety disorder, unspecified; I10 Essential (primary) hypertension; E11.65 Type 2 diabetes mellitus with hyperglycemia; F17.210 Nicotine dependence, cigarettes, uncomplicated; Z79.899 Other long term (current) drug therapy; Z59.00 Homelessness unspecified
CPT/HCPCS: 80053; 80061; 80307; 81001; 82009; 82962; 83036; 84443; 85025; 87081; 87086; 87186; 99285; G0480; J1815